=== PATIENT | male | born 1995 | race Hispanic/Latino ===

== ENCOUNTER 2019-02-09 21:54 | Emergency (ER) | payer OTHER ==
--- NOTE | 2019-02-09 23:02 | ER ---
Nurse's Notes [facility] Name: Jose Robbins Age: 23 yrs Sex: Male : 1995 Arrival Date: 02/09/2019 Time: 22:00 Bed 7 Private MD: Diagnosis: Other chest pain-wall Presentation: 02/09 22:12 Presenting complaint: Patient states: he does ju jitsu and a few days ago during a aa1 fight he injured his L lower rib cage and is now having pain with movement and respiration. Transition of care: patient was not received from another setting of care. Onset of symptoms was February 07, 2019. Risk Assessment: Do you want to hurt yourself or someone else? Patient reports no desire to harm self or others. Initial Sepsis Screen: Does the patient meet any 2 criteria? No. Patient's initial sepsis screen is negative. Does the patient have a suspected source of infection? No. Patient's initial sepsis screen is negative. Care prior to arrival: None. 22:12 Method Of Arrival: Ambulatory aa1 22:12 Acuity: LETTY 4 aa1 Triage Assessment: 22:17 General: Appears in no apparent distress. comfortable, Behavior is calm, cooperative, aa1 appropriate for age. Historical: - Allergies: 22:17 No Known Allergies; aa1 - Home Meds: 22:17 None [Active]; aa1 - PMHx: 22:17 None; aa1 - PSHx: 22:17 Ear Tubes; aa1 - Immunization history:: Flu vaccine is up to date. - Social history:: Smoking status: Patient/guardian denies using tobacco. - Ebola Screening: : No symptoms or risks identified at this time. - Family history:: not pertinent. Screenin:32 Abuse screen: Denies threats or abuse. Nutritional screening: No deficits noted. ea Tuberculosis screening: No symptoms or risk factors identified. Fall Risk None identified. Assessment: 22:31 General: Appears in no apparent distress. Behavior is calm, cooperative, appropriate ea for age. Pain: Complains of pain in rib. Neuro: Level of Consciousness is awake, alert, obeys commands, Oriented to person, place, time, situation. Cardiovascular: Patient's skin is warm and dry. Respiratory: Airway is patent Respiratory effort is even, unlabored, Respiratory pattern is regular, symmetrical. GI: No signs and/or symptoms were reported involving the gastrointestinal system. Derm: Skin is pink, warm \T\ dry. Musculoskeletal: Circulation, motion, and sensation intact. 22:56 Reassessment: pt taken to radiology. ea 23:23 Reassessment: Patient and/or family updated on plan of care and expected duration. Pain ea level reassessed. Patient is alert, oriented x 3, equal unlabored respirations, skin warm/dry/pink. Discharge instructions given to patient, verbalized the understanding of instructions. Vital Signs: 22:17 BP 100 / 68; Pulse 90; Resp 16; Temp 97.1; Pulse Ox 99% on R/A; Weight 58.97 kg; Height aa1 5 ft. 7 in. (170.18 cm); Pain 8/10; 22:17 Body Mass Index 20.36 (58.97 kg, 170.18 cm) aa1 ED Course: 22:00 Patient arrived in ED. mr 22:10 Blaze Araujo MD is Attending Physician. [facility] 22:17 Triage completed. aa1 22:17 Arm band placed on right wrist. aa1 22:31 Jordyn Mccoy RN is Primary Nurse. ea 22:32 Patient has correct armband on for positive identification. Bed in low position. Call ea light in reach. Side rails up X2. 22:51 Chest Pa And Lat (2 Views) XRAY In Process Unspecified. EDMS 23:23 No provider procedures requiring assistance completed. Patient did not have IV access ea during this emergency room visit. Administered Medications: 23:02 Drug: Motrin 600 mg Route: PO; ea 23:24 Follow up: Response: No adverse reaction ea 23:02 Drug: [place] 5 mg-325 mg 1 tabs Route: PO; ea 23:24 Follow up: Response: No adverse reaction; Pain is decreased ea Outcome: 23:01 Discharge ordered by . niles 23:23 Discharged to home ambulatory, with significant other. ea 23:23 Condition: improved 23:23 Discharge instructions given to patient, Instructed on discharge instructions, follow up and referral plans. medication usage, Demonstrated understanding of instructions, follow-up care, medications, Prescriptions given X 2. 23:24 Patient left the ED. ea Signatures: Dispatcher [employer] EDMS Marisa Mccall RN RN aa1 Blaze Araujo MD MD cha Rivera, Mary mr Jordyn Mccoy, RN RN ea
--- NOTE | 2019-02-09 23:02 | EDPHYS ---
Physician Documentation [facility] Name: Jose Robbins Age: 23 yrs Sex: Male : 1995 Arrival Date: 02/09/2019 Time: 22:00 Bed 7 Private MD: ED Physician Blaze Araujo HPI: 02/09 22:54 This 23 yrs old Male presents to ER via Ambulatory with complaints of Rib pain.niles 22:54 The patient or guardian reports chest pain that is located primarily in the anterior niles chest wall. Onset: The symptoms/episode began/occurred 3 day(s) ago. The pain does not radiate. Associated signs and symptoms: The patient has no apparent associated signs or symptoms. The chest pain is described as. Modifying factors: The symptoms are alleviated by remaining still, rest, the symptoms are aggravated by deep breath, movement, palpation of area. Severity of pain: At its worst the pain was mild in the emergency department the pain is unchanged. Historical: - Allergies: 22:17 No Known Allergies; aa1 - Home Meds: 22:17 None [Active]; aa1 - PMHx: 22:17 None; aa1 - PSHx: 22:17 Ear Tubes; aa1 - Immunization history:: Flu vaccine is up to date. - Social history:: Smoking status: Patient/guardian denies using tobacco. - Ebola Screening: : No symptoms or risks identified at this time. - Family history:: not pertinent. ROS: 22:54 Constitutional: Negative for fever, chills, and weight loss, Eyes: Negative for injury, niles pain, redness, and discharge, ENT: Negative for injury, pain, and discharge, Neck: Negative for injury, pain, and swelling, Cardiovascular: Negative for chest pain, palpitations, and edema, Respiratory: Negative for shortness of breath, cough, wheezing, and pleuritic chest pain, Abdomen/GI: Negative for abdominal pain, nausea, vomiting, diarrhea, and constipation, Back: Negative for injury and pain, : Negative for injury, bleeding, discharge, and swelling, MS/Extremity: Negative for injury and deformity, Skin: Negative for injury, rash, and discoloration, Neuro: Negative for headache, weakness, numbness, tingling, and seizure, Psych: Negative for depression, anxiety, suicide ideation, homicidal ideation, and hallucinations, Allergy/Immunology: Negative for hives, rash, and allergies, Endocrine: Negative for neck swelling, polydipsia, polyuria, polyphagia, and marked weight changes, Hematologic/Lymphatic: Negative for swollen nodes, abnormal bleeding, and unusual bruising. Exam: 22:54 Constitutional: This is a well developed, well nourished patient who is awake, alert, niles and in no acute distress. Head/Face: Normocephalic, atraumatic. Eyes: Pupils equal round and reactive to light, extra-ocular motions intact. Lids and lashes normal. Conjunctiva and sclera are non-icteric and not injected. Cornea within normal limits. Periorbital areas with no swelling, redness, or edema. ENT: Nares patent. No nasal discharge, no septal abnormalities noted. Tympanic membranes are normal and external auditory canals are clear. Oropharynx with no redness, swelling, or masses, exudates, or evidence of obstruction, uvula midline. Mucous membranes moist. Neck: Trachea midline, no thyromegaly or masses palpated, and no cervical lymphadenopathy. Supple, full range of motion without nuchal rigidity, or vertebral point tenderness. No Meningismus. Cardiovascular: Regular rate and rhythm with a normal S1 and S2. No gallops, murmurs, or rubs. Normal PMI, no JVD. No pulse deficits. Respiratory: Lungs have equal breath sounds bilaterally, clear to auscultation and percussion. No rales, rhonchi or wheezes noted. No increased work of breathing, no retractions or nasal flaring. Abdomen/GI: Soft, non-tender, with normal bowel sounds. No distension or tympany. No guarding or rebound. No evidence of tenderness throughout. Back: No spinal tenderness. No costovertebral tenderness. Full range of motion. Male : Normal genitalia with no discharge or lesions. Skin: Warm, dry with normal turgor. Normal color with no rashes, no lesions, and no evidence of cellulitis. MS/ Extremity: Pulses equal, no cyanosis. Neurovascular intact. Full, normal range of motion. Neuro: Awake and alert, GCS 15, oriented to person, place, time, and situation. Cranial nerves II-XII grossly intact. Motor strength 5/5 in all extremities. Sensory grossly intact. Cerebellar exam normal. Normal gait. Psych: Awake, alert, with orientation to person, place and time. Behavior, mood, and affect are within normal limits. 22:54 Chest/axilla: Inspection: normal, Palpation: is normal, no acute changes, Axilla: are normal, no acute changes, Lymph nodes: lymphadenopathy is not appreciated. Vital Signs: 22:17 BP 100 / 68; Pulse 90; Resp 16; Temp 97.1; Pulse Ox 99% on R/A; Weight 58.97 kg; Height aa1 5 ft. 7 in. (170.18 cm); Pain 8/10; 22:17 Body Mass Index 20.36 (58.97 kg, 170.18 cm) aa1 MDM: 22:[address] [facility] 22:56 Data reviewed: vital signs, nurses notes, lab test result(s), radiologic studies, plain niles films. 02/09 23:11 Order name: Urine Dipstick--Ancillary (enter results) ar5 02/09 22:12 Order name: Chest Pa And Lat (2 Views) XRAY aa1 02/09 22:53 Order name: Urine Dipstick-Ancillary (obtain specimen); Complete Time: 23:09 [facility] Administered Medications: 23:02 Drug: Motrin 600 mg Route: PO; ea 23:24 Follow up: Response: No adverse reaction ea 23:02 Drug: [place] 5 mg-325 mg 1 tabs Route: PO; ea 23:24 Follow up: Response: No adverse reaction; Pain is decreased ea Disposition: 02/09/19 23:01 Discharged to Home. Impression: Other chest pain - wall. - Condition is Stable. - Discharge Instructions: Chest Wall Pain. - Prescriptions for Ibuprofen 600 mg Oral Tablet - take 1 tablet by ORAL route every 8 hours As needed take with food; 21 tablet. Tylenol- Codeine #3 300-30 mg Oral Tablet - take 2 tablets by ORAL route every 6 hours As needed; 21 tablet. - Medication Reconciliation Form, Thank You Letter, Antibiotic Education, Prescription Opioid Use form. - Follow up: Private Physician; When: 2 - 3 days; Reason: Recheck today's complaints, Continuance of care, Re-evaluation by your physician. - Problem is new. - Symptoms have improved. Signatures: Dispatcher [employer] Marisa Macdonald RN RN aa1 Blaze Araujo MD MD cha Antunez, Jordyn, RN RN ea Corrections: (The following items were deleted from the chart) 23:24 23:01 02/09/2019 23:01 Discharged to Home. Impression: Other chest pain - wall. ea Condition is Stable. Discharge Instructions: Chest Wall Pain. Prescriptions for Ibuprofen 600 mg Oral Tablet - take 1 tablet by ORAL route every 8 hours As needed take with food; 21 tablet, Tylenol-Codeine #3 300-30 mg Oral Tablet - take 2 tablets by ORAL route every 6 hours As needed; 21 tablet. and Forms are Medication Reconciliation Form, Thank You Letter, Antibiotic Education, Prescription Opioid Use. Follow up: Private Physician; When: 2 - 3 days; Reason: Recheck today's complaints, Continuance of care, Re-evaluation by your physician. Problem is new. Symptoms have improved. niles
[2019-02-09] MEDS ORDERED: HYDROCODONE/APAP 5/325 MG TAB ONE (23:11)
[2019-02-09] MEDS ORDERED: IBUPROFEN 400 MG TAB ONE (23:11)
[2019-02-09] MEDS ORDERED: IBUPROFEN 200 MG TAB PO ONE (23:11)
[2019-02-09 23:24] LABS: Urine Blood TRACE (NEG); Urine Glucose NEGATIVE (NEG); Urine Protein TRACE (NEG); Urine Specific Gravity 1.025 (1.005-1.030)
--- NOTE | 2019-02-10 10:17 | RAD REPORT ---
EXAM DESCRIPTION: RAD - Chest Pa And Lat (2 Views) - 02/09/2019 10:53 pm CLINICAL HISTORY: RIB PAIN - LEFT Chest pain. COMPARISON: ABDOMEN 1 VIEW KUB dated 12/13/2013; ABDOMEN ACUTE SERIES dated 10/15/2004 FINDINGS: The lungs are clear. The heart is normal in size. No displaced fractures. IMPRESSION: No acute or concerning finding suspected.
== END 2019-02-09 23:24 | disposition home or self-care (01) ==
LOC: ER 21:54
DX: R07.89 Other chest pain (principal)
CPT/HCPCS: 71046; 81003; 99283

== ENCOUNTER 2019-03-11 01:11 | Emergency (ER) | payer OTHER ==
[2019-03-11] MEDS ORDERED: NA CHLORIDE 0.9% 1,000 ML ONE (02:10)
[2019-03-11] MEDS ORDERED: ONDANSETRON 4 MG/2 ML VIAL ONE (02:10)
[2019-03-11 02:34] LABS: Absolute Lymphocytes (CBC) 1.7 K/uL (0.7-4.9); Absolute Monocytes 0.6 K/uL (0.1-1.3); Absolute Neutrophil 4.6 K/uL (1.8-8.0); Basophils % 0.5 % (0-1.3); Eosinophils % 3.2 % (0-4.4); Lymphocytes % 23.5 % (15.3-44.8); MPV 8.9 fL (7.6-11.3); RBC Red Blood Cell Count 4.47 M/uL (4.33-5.43)
[2019-03-11 02:38] LABS: Protime INR 1.13
[2019-03-11 03:12] LABS: Barbiturates NEGATIVE (NEGATIVE); Benzodiazepines NEGATIVE (NEGATIVE); Cocaine NEGATIVE (NEGATIVE); METHAMPHETAM NEGATIVE (NEGATIVE); Methadone NEGATIVE (NEGATIVE); Opiates NEGATIVE (NEGATIVE); Phencyclidine NEGATIVE (NEGATIVE); THC Cannibis NEGATIVE (NEGATIVE)
[2019-03-11 03:14] LABS: ALT/SGPT 38 U/L (12-78); AST/SGOT 40 U/L (15-37); Albumin 4.1 g/dL (3.4-5.0); Alkaline Phosphatase 72 U/L (45-117); BUN Blood Urea Nitrogen 8 mg/dL (7-18); Bicarbonate 29 mmol/L (21-32); Bilirubin Direct 0.2 mg/dL (0-0.2); Bilirubin Total 0.9 mg/dL (0.2-1.0); Glucose Level 95 mg/dL (74-106); Potassium 3.3 mmol/L (3.5-5.1); Protein, Total 8.3 g/dL (6.4-8.2); Sodium Level 144 mmol/L (136-145)
--- NOTE | 2019-03-11 03:22 | ER ---
Nurse's Notes [facility] Name: Jose Robbins Age: 23 yrs Sex: Male : 1995 Arrival Date: 03/11/2019 Time: 01:19 Bed 7 Private MD: Diagnosis: Epileptic seizures related to external causes, not intractable;Pain in left shoulder;Hypokalemia Presentation: 03/11 01:20 Presenting complaint: EMS states: "bystanders reported the pt was wrestling and doing jd3 jujitsu with friends and had seizure like activity for about 40 sec, then he woke up and was in a post ictal state. He was A\\T\\O X 4 by the time we got to the ER.". Transition of care: patient was not received from another setting of care. Onset of symptoms was March 11, 2019. Risk Assessment: Do you want to hurt yourself or someone else? Patient reports no desire to harm self or others. Initial Sepsis Screen: Does the patient meet any 2 criteria? No. Patient's initial sepsis screen is negative. Does the patient have a suspected source of infection? No. Patient's initial sepsis screen is negative. Care prior to arrival: None. 01:20 Method Of Arrival: EMS: [facility] jd3 01:20 Acuity: LETTY 3 jd3 Historical: - Allergies: 01:27 No Known Allergies; jd3 - Home Meds: 01:27 None [Active]; jd3 - PMHx: 01:27 None; jd3 - PSHx: 01:27 Ear Tubes; jd3 - Immunization history:: Adult Immunizations up to date. - Social history:: Smoking status: Patient/guardian denies using tobacco. - Ebola Screening: : Patient negative for fever greater than or equal to 101.5 degrees Fahrenheit, and additional compatible Ebola Virus Disease symptoms. - Family history:: not pertinent. Screenin:30 Abuse screen: Denies threats or abuse. Nutritional screening: No deficits noted. jd3 Tuberculosis screening: No symptoms or risk factors identified. Fall Risk Ambulatory Aid- None/Bed Rest/Nurse Assist (0 pts). Gait- Normal/Bed Rest/Wheelchair (0 pts) Mental Status- Oriented to own ability (0 pts). Total Pruitt Fall Scale indicates No Risk (0-24 pts). Assessment: 01:28 General: Appears in no apparent distress. uncomfortable, Behavior is calm, cooperative, jd3 appropriate for age. Pain: Complains of pain in left shoulder Quality of pain is described as aching. Neuro: Level of Consciousness is awake, alert, obeys commands, Oriented to person, place, time, situation, Appropriate for age Reports headache Denies blurred vision dizziness, numbness. Cardiovascular: Heart tones present Capillary refill < 3 seconds Patient's skin is warm and dry. Respiratory: Airway is patent Respiratory effort is even, unlabored, Respiratory pattern is regular, symmetrical, Breath sounds are clear bilaterally. GI: Abdomen is flat, non-distended, Bowel sounds present X 4 quads. Abd is soft and non tender X 4 quads. Reports nausea. : No signs and/or symptoms were reported regarding the genitourinary system. EENT: No signs and/or symptoms were reported regarding the EENT system. Derm: Skin is intact, Skin is dry, Skin is normal, Skin temperature is warm. Musculoskeletal: Circulation, motion, and sensation intact. Range of motion: intact in all extremities. 04:14 Reassessment: Patient appears in no apparent distress at this time. No changes from ak1 previously documented assessment. Patient and/or family updated on plan of care and expected duration. Pain level reassessed. pt with steady gait at discharge. pt resp even and unlabored. Vital Signs: 01:27 BP 106 / 89; Pulse 87; Resp 16 S; Temp 98.4(O); Pulse Ox 98% on R/A; Weight 54.43 kg jd3 (R); Height 5 ft. 7 in. (170.18 cm) (R); Pain 6/10; 01:27 Body Mass Index 18.79 (54.43 kg, 170.18 cm) jd3 ED Course: 01:19 Patient arrived in ED. 01:19 Tato Garcia RN is Primary Nurse. jd3 01:26 Triage completed. jd3 01:28 Arm band placed on. jd3 01:31 Patient has correct armband on for positive identification. Bed in low position. Call j light in reach. Side rails up X2. Adult w/ patient. Seizure precautions initiated. 01:38 Blaze Araujo MD is Attending Physician. niles 02:12 Inserted saline lock: 20 gauge in right antecubital area, using aseptic technique. ag4 Blood collected. 02:12 EKG done, by ED staff, reviewed by Blaze Araujo MD. ag4 02:16 X-ray completed. Portable x-ray completed in exam room. Patient tolerated procedure kp1 well. 02:16 Shoulder Left (2 View) XRAY In Process Unspecified. EDMS 02:38 CT Head Brain wo Cont In Process Unspecified. EDOK 03:22 Patricio Wooten MD is Referral Physician. [facility] 03:22 Adam Collado MD is Referral Physician. niles 04:12 No provider procedures requiring assistance completed. IV discontinued, intact, ak1 bleeding controlled, No redness/swelling at site. Pressure dressing applied. Administered Medications: 02:11 Drug: NS 0.9% 1000 ml Route: IV; Rate: 1 bolus; Site: right antecubital; jd3 04:15 Follow up: IV Status: Completed infusion; IV Intake: 1000ml ak1 02:12 Drug: Zofran 4 mg Route: IVP; Site: right antecubital; jd3 03:55 Follow up: Response: No adverse reaction ak1 04:00 Drug: Potassium Effervescent Tablet 25 mEq Route: PO; ak1 04:09 Follow up: Response: No adverse reaction ak1 Intake: 04:15 IV: 1000ml; Total: 1000ml. ak1 Outcome: 03:22 Discharge ordered by . niles 04:12 Discharged to home ambulatory, with family. ak1 04:12 Condition: good 04:12 Discharge instructions given to patient, family, Instructed on discharge instructions, follow up and referral plans. no drinking with medication, no driving heavy equipment, medication usage, Demonstrated understanding of instructions, follow-up care, medications, Prescriptions given X 2. 04:16 Patient left the ED. ak1 Signatures: Dispatcher [employer] Blaze Howard MD MD cha Chretien, Felicia RN Emelyn Leahy RN RN Laura Hewitt Jonathon, RN RN sowmya Novak, [place] ag4
--- NOTE | 2019-03-11 03:22 | EDPHYS ---
Physician Documentation [facility] Name: Jose Robbins Age: 23 yrs Sex: Male : 1995 Arrival Date: 03/11/2019 Time: 01:19 Bed 7 Private MD: ED Physician Blaze Araujo HPI: 03/11 02:18 This 23 yrs old Male presents to ER via EMS with complaints of first seizure. niles 02:18 The patient presents after having a single isolated seizure, that lasted 30 second(s). niles Character of seizure(s): Loss of consciousness: the patient did not lose consciousness, Motor activity: generalized, Incontinence: none, Apnea: the patient did not experience apnea, Circulation: the patient did not experience evidence of pulse disturbance. Seizure onset: just prior to arrival. Context: the seizure(s) was witnessed, by family. Seizure Hx: the patient has no previous seizure history. Associated injury: Left upper extremity: anterior aspect of left shoulder and posterior aspect of left shoulder. The patient has not experienced similar symptoms in the past. Historical: - Allergies: 01:27 No Known Allergies; jd3 - Home Meds: 01:27 None [Active]; jd3 - PMHx: 01: None; jd3 - PSHx: 01:27 Ear Tubes; jd3 - Immunization history:: Adult Immunizations up to date. - Social history:: Smoking status: Patient/guardian denies using tobacco. - Ebola Screening: : Patient negative for fever greater than or equal to 101.5 degrees Fahrenheit, and additional compatible Ebola Virus Disease symptoms. - Family history:: not pertinent. ROS: 02:18 Constitutional: Negative for fever, chills, and weight loss, Eyes: Negative for injury, niles pain, redness, and discharge, ENT: Negative for injury, pain, and discharge, Neck: Negative for injury, pain, and swelling, Cardiovascular: Negative for chest pain, palpitations, and edema, Respiratory: Negative for shortness of breath, cough, wheezing, and pleuritic chest pain, Abdomen/GI: Negative for abdominal pain, nausea, vomiting, diarrhea, and constipation, Back: Negative for injury and pain, : Negative for injury, bleeding, discharge, and swelling, Skin: Negative for injury, rash, and discoloration, Neuro: Negative for headache, weakness, numbness, tingling, and seizure, Psych: Negative for depression, anxiety, suicide ideation, homicidal ideation, and hallucinations, Allergy/Immunology: Negative for hives, rash, and allergies, Endocrine: Negative for neck swelling, polydipsia, polyuria, polyphagia, and marked weight changes, Hematologic/Lymphatic: Negative for swollen nodes, abnormal bleeding, and unusual bruising. 02:18 MS/extremity: Positive for decreased range of motion, swelling, tenderness, of the anterior aspect of left shoulder and posterior aspect of left shoulder. Exam: 02:18 Constitutional: This is a well developed, well nourished patient who is awake, alert, niles and in no acute distress. Head/Face: Normocephalic, atraumatic. Eyes: Pupils equal round and reactive to light, extra-ocular motions intact. Lids and lashes normal. Conjunctiva and sclera are non-icteric and not injected. Cornea within normal limits. Periorbital areas with no swelling, redness, or edema. ENT: Nares patent. No nasal discharge, no septal abnormalities noted. Tympanic membranes are normal and external auditory canals are clear. Oropharynx with no redness, swelling, or masses, exudates, or evidence of obstruction, uvula midline. Mucous membranes moist. Neck: Trachea midline, no thyromegaly or masses palpated, and no cervical lymphadenopathy. Supple, full range of motion without nuchal rigidity, or vertebral point tenderness. No Meningismus. Chest/axilla: Normal chest wall appearance and motion. Nontender with no deformity. No lesions are appreciated. Cardiovascular: Regular rate and rhythm with a normal S1 and S2. No gallops, murmurs, or rubs. Normal PMI, no JVD. No pulse deficits. Respiratory: Lungs have equal breath sounds bilaterally, clear to auscultation and percussion. No rales, rhonchi or wheezes noted. No increased work of breathing, no retractions or nasal flaring. Abdomen/GI: Soft, non-tender, with normal bowel sounds. No distension or tympany. No guarding or rebound. No evidence of tenderness throughout. Back: No spinal tenderness. No costovertebral tenderness. Full range of motion. Skin: Warm, dry with normal turgor. Normal color with no rashes, no lesions, and no evidence of cellulitis. Neuro: Awake and alert, GCS 15, oriented to person, place, time, and situation. Cranial nerves II-XII grossly intact. Motor strength 5/5 in all extremities. Sensory grossly intact. Cerebellar exam normal. Normal gait. Psych: Awake, alert, with orientation to person, place and time. Behavior, mood, and affect are within normal limits. 02:18 Musculoskeletal/extremity: ROM: limited active range of motion, limited passive range of motion, Circulation is intact in all extremities. Compartment Syndrome exam of affected extremity: is normal. DVT Exam: No signs of deep vein thrombosis. no pain, no swelling, no tenderness, negative Homans' sign noted on exam, no appreciated bluish discoloration, no erythema, no increased warmth. Vital Signs: 01:27 BP 106 / 89; Pulse 87; Resp 16 S; Temp 98.4(O); Pulse Ox 98% on R/A; Weight 54.43 kg jd3 (R); Height 5 ft. 7 in. (170.18 cm) (R); Pain 6/10; 01:27 Body Mass Index 18.79 (54.43 kg, 170.18 cm) jd3 MDM: 01:38 Patient medically screened. [facility] 02:23 Data reviewed: vital signs, nurses notes, lab test result(s), EKG, radiologic studies, [facility] CT scan, plain films. 03/11 01:42 Order name: Acetaminophen [facility] 03/11 01:42 Order name: Basic Metabolic Panel [facility] 03/11 01:42 Order name: CBC with Diff; Complete Time: 03:05 [facility] 03/11 01:42 Order name: ETOH Level; Complete Time: 03:37 [facility] 03/11 01:42 Order name: Hepatic Function; Complete Time: 03:37 [facility] 03/11 01:42 Order name: PT-INR; Complete Time: 03:05 [facility] 03/11 01:42 Order name: Ptt, Activated; Complete Time: 03:05 [facility] 03/11 01:42 Order name: Salicylate; Complete Time: 03:20 [facility] 03/11 01:42 Order name: Urine Drug Screen; Complete Time: 03:20 [facility] 03/11 01:42 Order name: CT Head Brain wo Cont [facility] 03/11 01:42 Order name: Acetaminophen Level; Complete Time: 03:37 EDMS 03/11 01:42 Order name: Basic Metabolic Panel; Complete Time: 03:37 EDMA 03/11 01:57 Order name: Shoulder Left (2 View) XRAY [facility] 03/11 02:34 Order name: Urine Dipstick--Ancillary (enter results) 03/11 01:42 Order name: EKG; Complete Time: 01:42 [facility] 03/11 01:42 Order name: EKG - Nurse/Tech; Complete Time: 02:11 [facility] 03/11 01:42 Order name: IV Saline Lock; Complete Time: 02:11 [facility] 03/11 01:42 Order name: Labs collected and sent; Complete Time: 02:11 [facility] 03/11 01:42 Order name: Urine Dipstick-Ancillary (obtain specimen); Complete Time: 02:11 [facility] 03/11 02:26 Order name: Sling; Complete Time: 03:04 [facility] 03/11 03:21 Order name: Ice pack; Complete Time: 03:34 [facility] Administered Medications: 02:11 Drug: NS 0.9% 1000 ml Route: IV; Rate: 1 bolus; Site: right antecubital; jd3 04:15 Follow up: IV Status: Completed infusion; IV Intake: 1000ml ak1 02:12 Drug: Zofran 4 mg Route: IVP; Site: right antecubital; jd3 03:55 Follow up: Response: No adverse reaction ak1 04:00 Drug: Potassium Effervescent Tablet 25 mEq Route: PO; ak1 04:09 Follow up: Response: No adverse reaction ak1 Disposition: 03/11/19 03:22 Discharged to Home. Impression: Epileptic seizures related to external causes, not intractable, Pain in left shoulder, Hypokalemia. - Condition is Stable. - Discharge Instructions: Joint Pain, Potassium Content of Foods, Musculoskeletal Pain, Nonepileptic Seizures, Seizure, Adult, Shoulder Pain, Shoulder Pain, [id number], Seizure, Adult, [id number], Hypokalemia. - Prescriptions for Tylenol- Codeine #3 300-30 mg Oral Tablet - take 2 tablets by ORAL route every 6 hours As needed; 24 tablet. Motrin IB 200 mg Oral Tablet - take 2 tablet by ORAL route every 6 hours As needed as needed with food; 30 tablet. - Medication Reconciliation Form, Thank You Letter, Antibiotic Education, Prescription Opioid Use, Work release form form. - Follow up: Private Physician; When: 2 - 3 days; Reason: Recheck today's complaints, Continuance of care, Re-evaluation by your physician. Follow up: Patricio Wooten; When: 2 - 3 days; Reason: Recheck today's complaints, Re-evaluation by your physician. Follow up: Adam Collado; When: 2 - 3 days; Reason: Recheck today's complaints, Continuance of care, Re-evaluation by your physician. - Problem is new. - Symptoms have improved. Signatures: Dispatcher [employer] EDBlaze Kirby MD MD cha Krenek, Amber RN RN ak1 Tato Garcia RN RN jd3 Corrections: (The following items were deleted from the chart) 03:39 03:22 03/11/2019 03:22 Discharged to Home. Impression: Epileptic seizures related to niles external causes, not intractable; Pain in left shoulder. Condition is Stable. Discharge Instructions: Joint Pain, Musculoskeletal Pain, Shoulder Pain, Shoulder Pain, [id number]. Prescriptions for Tylenol-Codeine #3 300-30 mg Oral Tablet - take 2 tablets by ORAL route every 6 hours As needed; 24 tablet, Motrin IB 200 mg Oral Tablet - take 2 tablet by ORAL route every 6 hours As needed as needed with food; 30 tablet. and Forms are Medication Reconciliation Form, Thank You Letter, Antibiotic Education, Prescription Opioid Use. Follow up: Private Physician; When: 2 - 3 days; Reason: Recheck today's complaints, Continuance of care, Re-evaluation by your physician. Follow up: Patricio Wooten; When: 2 - 3 days; Reason: Recheck today's complaints, Re-evaluation by your physician. Follow up: Adam Collado; When: 2 - 3 days; Reason: Recheck today's complaints, Continuance of care, Re-evaluation by your physician. Problem is new. Symptoms have improved. [facility] 04:16 03:39 03/11/2019 03:22 Discharged to Home. Impression: Epileptic seizures related to ak1 external causes, not intractable; Pain in left shoulder; Hypokalemia. Condition is Stable. Discharge Instructions: Joint Pain, Musculoskeletal Pain, Shoulder Pain, Shoulder Pain, [id number]. Prescriptions for Tylenol-Codeine #3 300-30 mg Oral Tablet - take 2 tablets by ORAL route every 6 hours As needed; 24 tablet, Motrin IB 200 mg Oral Tablet - take 2 tablet by ORAL route every 6 hours As needed as needed with food; 30 tablet. and Forms are Medication Reconciliation Form, Thank You Letter, Antibiotic Education, Prescription Opioid Use. Follow up: Private Physician; When: 2 - 3 days; Reason: Recheck today's complaints, Continuance of care, Re-evaluation by your physician. Follow up: Patricio Wooten; When: 2 - 3 days; Reason: Recheck today's complaints, Re-evaluation by your physician. Follow up: Adam Collado; When: 2 - 3 days; Reason: Recheck today's complaints, Continuance of care, Re-evaluation by your physician. Problem is new. Symptoms have improved. niles
[2019-03-11] MEDS ORDERED: POTASSIUM 25 MEQ EFFERV TAB ONE (04:09)
[2019-03-11 04:41] LABS: Urine Blood TRACE (NEG); Urine Glucose NEGATIVE (NEG); Urine Protein NEGATIVE (NEG); Urine Specific Gravity 1.015 (1.005-1.030)
--- NOTE | 2019-03-11 07:47 | EKG ---
Test Date: 2019-03-11 Test Time: 01:52:39 High Speed Warper Tender: LUCA MEASUREMENT RESULTS: Intervals: Rate: 73 GA: 180 QRSD: 84 QT: 390 QTc: 429 Irene: P: 65 GA: 180 QRS: 83 T: 66 INTERPRETIVE STATEMENTS: Normal sinus rhythm Early repolarization Normal ECG No previous ECG available for comparison Electronically Signed On 03-11-19 07:46:31 CDT by Pilo Castaneda
--- NOTE | 2019-03-11 11:04 | RAD REPORT ---
EXAM DESCRIPTION: RAD - Shoulder Left 2 View - 03/11/2019 2:18 am CLINICAL HISTORY: PAIN COMPARISON: No comparisons FINDINGS: No bone or joint abnormality.
--- NOTE | 2019-03-12 11:21 | RAD REPORT ---
EXAM DESCRIPTION: Head Brain Wo Cont CLINICAL HISTORY: Dizziness; seizure COMPARISON: None. TECHNIQUE: CT HEAD WITHOUT IV CONTRAST on 03/11/2019 1:42 AM CDT This exam was performed according to our departmental dose-optimization program, which includes autom ated exposure control, adjustment of the mA and/or kV according to patient size and/or use of iterati ve reconstruction technique. FINDINGS: There is no acute hemorrhage, mass effect or midline shift. Gutierrez-white differentiation is preserved. There is no hydrocephalus. There is no significant volume loss for age. The calvarium is intact. Orbits and globes are unremarkable. The paranasal sinuses are clear. Mastoid air cells are clear. IMPRESSION: No acute intracranial findings. Electronically signed by: Marlon Wheatley MD 03/11/2019 2:44 AM CDT Due to temporary technical issues with the PACS/Fluency reporting system, reports are being signed by the in house radiologist as a courtesy to ensure prompt reporting. The interpreting radiologist is f ully responsible for the content of the report.
== END 2019-03-11 04:16 | disposition home or self-care (01) ==
LOC: ER 01:11
DX: E87.6 Hypokalemia (principal); M25.512 Pain in left shoulder
CPT/HCPCS: 36415; 70450; 80048; 80076; 80307; 80320; 80329; 81003; 85025; 85610; 85730; 93005; J2405; J7030

== ENCOUNTER 2019-11-24 12:39 | Emergency (ER) | payer OTHER ==
[2019-11-24] MEDS ORDERED: ONDANSETRON 4 MG/2 ML VIAL ONE (12:58)
[2019-11-24 13:03] LABS: Absolute Lymphocytes (CBC) 1.1 K/uL (0.7-4.9); Basophils % 1.3 % (0-1.3); Hematocrit 40.7 % (39.6-49.0); Lymphocytes % 23.8 % (15.3-44.8); MPV 9.1 fL (7.6-11.3); RBC Red Blood Cell Count 4.53 M/uL (4.33-5.43)
[2019-11-24 13:06] LABS: Protime INR 1.09
[2019-11-24 13:21] LABS: ALT/SGPT 20 U/L (12-78); AST/SGOT 15 U/L (15-37); Alkaline Phosphatase 85 U/L (45-117); BUN Blood Urea Nitrogen 8 mg/dL (7-18); Bicarbonate 25 mmol/L (21-32); Bilirubin Direct 0.3 mg/dL (0-0.2); Bilirubin Total 0.9 mg/dL (0.2-1.0); Glucose Level 123 mg/dL (74-106); Potassium 3.9 mmol/L (3.5-5.1); Protein, Total 7.1 g/dL (6.4-8.2); Sodium Level 142 mmol/L (136-145)
[2019-11-24] MEDS ORDERED: ACETAMINOPHEN 500 MG TAB ONE (13:41)
[2019-11-24] MEDS ORDERED: ACETAMINOPHEN 325 MG TABLET ONE (13:41)
[2019-11-24] MEDS ORDERED: NA CHLORIDE 0.9% 100 ML IV ONE (13:47)
[2019-11-24] MEDS ORDERED: METOCLOPRAMIDE 10 MG/2mL INJ ONE (13:48)
[2019-11-24] MEDS ORDERED: ACETAMINOPHEN 160 MG/5 ML UCUP ONE (14:23)
[2019-11-24 14:48] LABS: Barbiturates NEGATIVE (NEGATIVE); Benzodiazepines NEGATIVE (NEGATIVE); Cocaine NEGATIVE (NEGATIVE); METHAMPHETAM NEGATIVE (NEGATIVE); Methadone NEGATIVE (NEGATIVE); Opiates NEGATIVE (NEGATIVE); Phencyclidine NEGATIVE (NEGATIVE); THC Cannibis NEGATIVE (NEGATIVE)
[2019-11-24] MEDS ORDERED: NA CHLORIDE 0.9% 1,000 ML ONE (15:06)
[2019-11-24 15:15] LABS: Urine Blood NEGATIVE (NEG); Urine Glucose NEGATIVE (NEG); Urine Protein NEGATIVE (NEG); Urine Specific Gravity 1.025 (1.005-1.030)
--- NOTE | 2019-11-24 15:59 | RAD REPORT ---
EXAM DESCRIPTION: CT - Head Brain Wo Cont - 11/24/2019 3:48 pm CLINICAL HISTORY: Seizure, altered mental status COMPARISON: February 2019 TECHNIQUE: Axial 5 mm thick images of the head were obtained without IV contrast. All CT scans are performed using dose optimization technique as appropriate and may include automated exposure control or mA/KV adjustment according to patient size. FINDINGS: No intracranial hemorrhage, mass, edema or shift of mid-line structures. No acute infarcti on changes seen. No abnormal extra-axial fluid collections. Ventricles are normal. Mastoid air cells and visualized portions of the paranasal sinuses are clear. No acute bony findings. No identifiable changes from comparison. IMPRESSION: Negative non-contrast CT head examination.
--- NOTE | 2019-11-24 17:29 | EDPHYS ---
Physician Documentation [facility] Name: Jose Robbins Age: 24 yrs Sex: Male : 1995 Arrival Date: 11/24/2019 Time: 12:41 Bed 24 Private MD: ED Physician Lupillo Pollock HPI: 11/24 12:46 This 24 yrs old Male presents to ER via EMS with complaints of Probable jmm Seizure. 12:46 The patient presents after having a single isolated seizure, that lasted 1 minute(s). jmm Character of seizure(s): Loss of consciousness: the patient experienced loss of consciousness, Motor activity: generalized, Incontinence: none, Apnea: the patient did not experience apnea, Circulation: the patient did not experience evidence of pulse disturbance. Seizure onset: just prior to arrival. Seizure Hx: Last seizure: The patient's last seizure was approximately 2 month(s) ago, Seizure medications: Lamictal. Associated injury: Other: tongue. This is a 24 year old male with a history of epilepsy that presents to the ED after a seizure which lasted approximately 1 minute while at [facility]. Was witnessed. Patient states he has not slept well the past few nights due to poor sleep schedule. Patient states he takes lamictal 150 mg q pm. . Historical: - Allergies: 12:46 No Known Allergies; sg - Home Meds: 12:46 Keppra 200 mg Oral nightly [Active]; sg - PMHx: 12:46 Seizures; sg - PSHx: 12:46 Ear Tubes; sg - Immunization history:: Adult Immunizations up to date. - Social history:: Smoking status: Patient/guardian denies using tobacco. - Ebola Screening: : Patient negative for fever greater than or equal to 101.5 degrees Fahrenheit, and additional compatible Ebola Virus Disease symptoms Patient denies exposure to infectious person Patient denies travel to an Ebola-affected area in the 21 days before illness onset No symptoms or risks identified at this time. ROS: 12:46 Constitutional: Negative for fever, chills, and weight loss, Cardiovascular: Negative jmm for chest pain, palpitations, and edema, Respiratory: Negative for shortness of breath, cough, wheezing, and pleuritic chest pain. 12:46 Abdomen/GI: Positive for nausea. 12:46 Neuro: Positive for seizure activity. 12:46 All other systems are negative. Exam: 12:46 Constitutional: This is a well developed, well nourished patient who is awake, alert, jmm and in no acute distress. Head/Face: atraumatic. Eyes: EOMI, no conjunctival erythema appreciated ENT: Moist Mucus Membranes Neck: Trachea midline, Supple Chest/axilla: Normal chest wall appearance and motion. Cardiovascular: Regular rate and rhythm. No edema appreciated Respiratory: Normal respirations, no respiratory distress appreciated 12:46 Back: Normal ROM Skin: General appearance color normal MS/ Extremity: Moves all extremities, no obvious deformities appreciated, no edema noted to the lower extremities Neuro: Awake and alert, normal gait Psych: Behavior is normal, Mood is normal, Patient is cooperative and pleasant 12:46 ENT: abrasion noted to the left lateral tongue. Vital Signs: 12:41 BP 125 / 87; Pulse 91; Resp 17; Temp 97.7; Pulse Ox 100% on R/A; sg 14:48 BP 85 / 57; Pulse 63; Resp 14; Pulse Ox 99% on R/A; sg 16:17 BP 91 / 52; Pulse 47; Resp 16 S; Pulse Ox 100% on R/A; sg 17:10 BP 94 / 54 LA (auto/reg); Pulse 70; Resp 18 S; Temp 98.0(O); Pulse Ox 100% on R/A; jp3 16:17 pt resting, eyes closed, no s/s distress noted, pt family remains at bedside sg [place] Coma Score: 12:45 Eye Response: spontaneous(4). Verbal Response: oriented(5). Motor Response: obeys sg commands(6). Total: 15. MDM: 12:44 Patient medically screened. [facility] 17:27 Data reviewed: vital signs, nurses notes. Counseling: I had a detailed discussion with eber the patient and/or guardian regarding: the historical points, exam findings, and any diagnostic results supporting the discharge/admit diagnosis, lab results, radiology results, the need for outpatient follow up, to return to the emergency department if symptoms worsen or persist or if there are any questions or concerns that arise at home. ED course: Patient is alert and non toxic in appearance in the ED. Patient states he feels much better. Mother states the patient most likely did not take his lamictal yesterday. Given education on sleep. Advised to follow up with neuro and otherwise given strict return precautions. Patient understood and agrees with the plan of care. . 11/24 12:45 Order name: Acetaminophen; Complete Time: 13:55 [facility] 11/24 12:45 Order name: Basic Metabolic Panel; Complete Time: 13:55 [facility] 11/24 12:45 Order name: CBC with Diff; Complete Time: 13:55 [facility] 11/24 12:45 Order name: ETOH Level; Complete Time: 13:55 [facility] 11/24 12:45 Order name: Hepatic Function; Complete Time: 13:55 [facility] 11/24 12:45 Order name: PT-INR; Complete Time: 13:55 [facility] 11/24 12:45 Order name: Ptt, Activated; Complete Time: 13:55 [facility] 11/24 12:45 Order name: Salicylate; Complete Time: 13:55 [facility] 11/24 12:45 Order name: Urine Drug Screen; Complete Time: 14:49 [facility] 11/24 14:44 Order name: Urine Dipstick--Ancillary (enter results); Complete Time: 15:22 sd 11/24 14:57 Order name: CT Head Brain wo Cont; Complete Time: 16:00 [facility] 11/24 12:45 Order name: EKG; Complete Time: 12:46 [facility] 11/24 12:45 Order name: EKG - Nurse/Tech; Complete Time: 13:04 [facility] 11/24 12:45 Order name: IV Saline Lock; Complete Time: 12:53 [facility] 11/24 12:45 Order name: Labs collected and sent; Complete Time: 12:53 [facility] 11/24 12:45 Order name: Urine Dipstick-Ancillary (obtain specimen); Complete Time: 14:51 [facility] 11/24 16:04 Order name: Vital Signs; Complete Time: 16:10 [facility] 11/24 16:04 Order name: Misc. Order: ambulate; Complete Time: 16:54 [facility] Administered Medications: 12:57 Drug: Zofran 4 mg Route: IVP; Site: right antecubital; sg 14:00 Follow up: Response: No adverse reaction sg 14:00 Drug: metoCLOPramide 10 mg {Note: administered as IVPB in NS 100 mL solution via IV sg pump.} Route: IVP; Site: right antecubital; 15:16 Follow up: Response: No adverse reaction; Pain is decreased sg 14:20 Drug: Tylenol 650 mg Route: PO; sg 15:17 Follow up: Response: No adverse reaction sg 15:03 Drug: NS 0.9% 1000 ml Route: IV; Rate: 1 bolus; Site: right antecubital; sg Disposition: 19:02 Co-signature as Attending Physician, Lupillo Pollock MD. rn Disposition: 11/24/19 17:29 Discharged to Home. Impression: Epilepsy and recurrent seizures. - Condition is Stable. - Discharge Instructions: Seizure, Adult. - Medication Reconciliation Form, Thank You Letter, Antibiotic Education, Prescription Opioid Use form. - Follow up: Private Physician; When: 2 - 3 days; Reason: Recheck today's complaints, Continuance of care, Re-evaluation by your physician. Signatures: Dispatcher [employer] Adam Ingram RN RN Tj Russo PA PA jmm Williams, Irene, RN RN iw Nieto, Roman, MD MD equine internship: (The following items were deleted from the chart) 17:39 17:29 11/24/2019 17:29 Discharged to Home. Impression: Epilepsy and recurrent seizures. iw Condition is Stable. Forms are Medication Reconciliation Form, Thank You Letter, Antibiotic Education, Prescription Opioid Use. Follow up: Private Physician; When: 2 - 3 days; Reason: Recheck today's complaints, Continuance of care, Re-evaluation by your physician. [place]
--- NOTE | 2019-11-24 17:29 | ER ---
Nurse's Notes [facility] Name: Jose Robbins Age: 24 yrs Sex: Male : 1995 Arrival Date: 11/24/2019 Time: 12:41 Bed 24 Private MD: Diagnosis: Epilepsy and recurrent seizures Presentation: 11/24 12:40 Presenting complaint: EMS states: [facility] with [facility] when he felt an aura and then woke up on the ground with classmates stating he had a seizure lasting about a minute. Transition of care: patient was not received from another setting of care. Onset of symptoms was November 24, 2019. Risk Assessment: Do you want to hurt yourself or someone else? Patient reports no desire to harm self or others. Initial Sepsis Screen: Does the patient meet any 2 criteria? HR > 90 bpm. No. Patient's initial sepsis screen is negative. Does the patient have a suspected source of infection? No. Patient's initial sepsis screen is negative. Care prior to arrival: Medication(s) given: Normal saline infusion, 1000 mL, IV initiated. 18 GA, in the right antecubital area, Glucose check: 144. 12:40 Method Of Arrival: EMS: [facility] sg 12:40 Acuity: LETTY 3 sg Triage Assessment: 12:45 General: Appears in no apparent distress. well groomed, well developed, well nourished, sg Behavior is calm, cooperative, appropriate for age. Pain: Complains of pain in head Quality of pain is described as throbbing. EENT: No signs and/or symptoms were reported regarding the EENT system. Neuro: Level of Consciousness is awake, alert, obeys commands, Oriented to person, place, time, situation, Speech is normal, Facial symmetry appears normal, Reports headache. Cardiovascular: Capillary refill is brisk in bilateral fingers Patient's skin is warm and dry. Chest pain is denied. Respiratory: Airway is patent Respiratory effort is even, unlabored, Respiratory pattern is regular. GI: No signs and/or symptoms were reported involving the gastrointestinal system. : No signs and/or symptoms were reported regarding the genitourinary system. Derm: Skin is pink, warm \T\ dry. Musculoskeletal: Circulation, motion, and sensation intact. Range of motion: intact in all extremities. Historical: - Allergies: 12:46 No Known Allergies; sg - Home Meds: 12:46 Keppra 200 mg Oral nightly [Active]; sg - PMHx: 12:46 Seizures; sg - PSHx: 12:46 Ear Tubes; sg - Immunization history:: Adult Immunizations up to date. - Social history:: Smoking status: Patient/guardian denies using tobacco. - Ebola Screening: : Patient negative for fever greater than or equal to 101.5 degrees Fahrenheit, and additional compatible Ebola Virus Disease symptoms Patient denies exposure to infectious person Patient denies travel to an Ebola-affected area in the 21 days before illness onset No symptoms or risks identified at this time. Assessment: 13:40 Reassessment: Patient appears in no apparent distress at this time. Patient and/or ss family updated on plan of care and expected duration. Pain level reassessed. Patient is alert, oriented x 3, equal unlabored respirations, skin warm/dry/pink. 14:40 Reassessment: Patient appears in no apparent distress at this time. Patient and/or ss family updated on plan of care and expected duration. Pain level reassessed. Patient is alert, oriented x 3, equal unlabored respirations, skin warm/dry/pink. 14:40 Neuro: Level of Consciousness is awake, alert, obeys commands, Oriented to person, ss place, time, Speech is normal, Reports headache occipital area. 15:40 Reassessment: Patient appears in no apparent distress at this time. Patient and/or ss family updated on plan of care and expected duration. Pain level reassessed. Patient is alert, oriented x 3, equal unlabored respirations, skin warm/dry/pink. 16:55 Reassessment: Patient appears in no apparent distress at this time. Patient and/or iw family updated on plan of care and expected duration. Pain level reassessed. Patient is alert, oriented x 3, equal unlabored respirations, skin warm/dry/pink. pt ambulated to nurse's station, steady gait, family at bedside. Vital Signs: 12:41 BP 125 / 87; Pulse 91; Resp 17; Temp 97.7; Pulse Ox 100% on R/A; sg 14:48 BP 85 / 57; Pulse 63; Resp 14; Pulse Ox 99% on R/A; sg 16:17 BP 91 / 52; Pulse 47; Resp 16 S; Pulse Ox 100% on R/A; sg 17:10 BP 94 / 54 LA (auto/reg); Pulse 70; Resp 18 S; Temp 98.0(O); Pulse Ox 100% on R/A; jp3 16:17 pt resting, eyes closed, no s/s distress noted, pt family remains at bedside sg [place] Coma Score: 12:45 Eye Response: spontaneous(4). Verbal Response: oriented(5). Motor Response: obeys sg commands(6). Total: 15. ED Course: 12:40 Arm band placed on. sg 12:41 Patient arrived in ED. sg 12:44 Triage completed. sg 12:44 Tj Rosenthal [facility] 12:44 Lupillo Pollock MD is Attending Physician. [facility] 12:57 Adam Perez, RN is Primary Nurse. sg 13:04 Safety checks: Family/friend present: yes. Family/friends encouraged to stay with jp3 patient. Bed in low position. Call light in reach. Side rails up X 1. Side rails up X2. Seizure precautions initiated. Warm blanket given. Verbal reassurance given. Pulse ox on. NIBP on. 13:04 EKG done, by ED staff, reviewed by Tj OLIVAS. Patient maintains SpO2 saturation jp3 greater than 95% on room air. 15:[address] Patient moved back from [address]. ss 15:48 CT Head Brain wo Cont In Process Unspecified. EDMS 16:42 Primary Nurse role handed off by Adam Perez, JORDAN iw 16:42 Adrienne Eugene, RN is Primary Nurse. iw Administered Medications: 12:57 Drug: Zofran 4 mg Route: IVP; Site: right antecubital; sg 14:00 Follow up: Response: No adverse reaction sg 14:00 Drug: metoCLOPramide 10 mg {Note: administered as IVPB in NS 100 mL solution via IV sg pump.} Route: IVP; Site: right antecubital; 15:16 Follow up: Response: No adverse reaction; Pain is decreased sg 14:20 Drug: Tylenol 650 mg Route: PO; sg 15:17 Follow up: Response: No adverse reaction sg 15:03 Drug: NS 0.9% 1000 ml Route: IV; Rate: 1 bolus; Site: right antecubital; sg Outcome: 17:29 Discharge ordered by MD. lazo 17:39 Patient left the ED. iw Signatures: Dispatcher [employer] EDAdam Faith, RN RN Tj Rosenthal PA PA jmm Williams, Irene, RN JORDAN Mayte Nielson RN RN ss Clay Barrios jp3 Corrections: (The following items were deleted from the chart) 15:17 12:40 Care prior to arrival: IV initiated. 18 GA, in the right antecubital area, sg Glucose check: 144 sg 15:46 15:40 Neuro: Level of Consciousness is awake, alert, obeys commands, Oriented to ss person, place, time, Speech is normal, Reports headache occipital area, ss
[2019-11-24 17:52] VITALS: O2SAT 100
[2019-11-24 18:00] VITALS: BP 94/54; TEMP 98
--- NOTE | 2019-11-25 06:34 | EKG ---
Test Date: 2019-11-24 Test Time: 12:59:21 Commercial Appraiser: DORITA MEASUREMENT RESULTS: Intervals: Rate: 72 WY: 162 QRSD: 76 QT: 378 QTc: 413 [place]: P: 69 WY: 162 QRS: 89 T: 78 INTERPRETIVE STATEMENTS: Normal sinus rhythm Early repolarization Normal ECG Compared to ECG 03/11/2019 01:52:39 No significant changes Electronically Signed On 11-25-19 06:34:07 U[employer] SPECIALIST by Enrrique Sawyer
== END 2019-11-24 17:39 | disposition home or self-care (01) ==
LOC: ER 12:39
DX: G40.802 Other epilepsy, not intractable, without status epilepticus (principal)
CPT/HCPCS: 93005; 85025; 80048; 36415; 80320; 80329 ×2; 85610; 80076; 80307 ×8; 85730; 81003; 70450; 96375; 96374; 99285; J2765; J7030; J2405